=== PATIENT | female | born 1995 | race African-American/Black ===

== ENCOUNTER 2017-08-28 10:07 | Emergency (ER) | payer OTHER ==
[~2017-08-28] VITALS: Ht 172.7 cm; Wt 54.4 kg
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
--- NOTE | 2017-08-28 11:10 | NUR ---
PATIENT BACK FROM XRAY, POSITONED COMFORTABLY.
--- NOTE | 2017-08-28 11:25 | NUR ---
Patient discharged to home in stable conditon. Written and verbal after care instructions given. Patient verbalizes understanding of instructions. PRESCRIPTION GIVEN
== END 2017-08-28 11:30 | disposition home or self-care (01) ==
LOC: ER 10:08
DX: S16.1XXA Strain of muscle, fascia and tendon at neck level, initial encounter (principal); V47.5XXA Car driver injured in collision with fixed or stationary object in traffic accident, initial encounter; Y93.89 Activity, other specified; Y92.410 Unspecified street and highway as the place of occurrence of the external cause; Y99.8 Other external cause status
CPT/HCPCS: 72040; 72100; 99284; A4663

== ENCOUNTER 2020-11-17 23:25 | Emergency (ER) | payer OTHER ==
[~2020-11-17] VITALS: Ht 172.7 cm; Wt 63.5 kg
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
[2020-11-17] MEDS ORDERED: ACETAMINOPHEN 325 MG TABLET PO ONE (23:45)
[2020-11-17] MEDS ORDERED: BACITRACIN ZINC OINT 15 GM TUBE TOP ONE (23:45)
[2020-11-17] MEDS ORDERED: TDAP DIPH,PERTUSS,TET VAC/PF 0.5 ML DISP.SYRIN IM ONE ×2 (23:45→23:52)
[2020-11-17] MEDS ORDERED: BACITRACIN ZINC OINT 15 GM TUBE ONE (23:52)
[2020-11-17] MEDS ORDERED: ACETAMINOPHEN 325 MG TABLET ONE (23:54)
[2020-11-17] MEDS ORDERED: AMOX-430 PO (23:55)
[2020-11-17] MEDS ORDERED: ACET-2154 PO (23:55)
[2020-11-18] MEDS ORDERED: AMOXICILLIN-CLAVUL 875-125MG TABLET PO ONE
[2020-11-18 00:09] LABS: *URINE HCG, QUAL NEGATIVE (NEGATIVE)
[2020-11-18 00:24] VITALS: BP 142/77
--- NOTE | 2020-11-18 00:24 | NUR ---
Patient discharged to home in stable condition. Written and verbal after care instructions given. Patient verbalizes understanding of instructions. Stressed follow up or return to ER for worsening s/s.
[2020-11-18] MEDS ORDERED: AMOXICILLIN-CLAVUL 875-125MG TABLET ONE (00:27)
== END 2020-11-18 00:26 | disposition home or self-care (01) ==
LOC: ER 23:39
DX: S71.132A Puncture wound without foreign body, left thigh, initial encounter (principal); S70.312A Abrasion, left thigh, initial encounter; W55.01XA Bitten by cat, initial encounter; Y92.89 Other specified places as the place of occurrence of the external cause
CPT/HCPCS: 84703; 90715; A4217; A4663